=== PATIENT | female | born 1970 | race Caucasian/White ===

== ENCOUNTER → 2021-03-06 14:31 | Outpatient (CLI) | payer OTHER, SELFPAY ==
--- NOTE | ~2021-03-06 | CT_ITS ---
EXAMINATION: CT sinus wo con DATE: 03/06/2021 14:46 INDICATION: Bacterial sinusitis TECHNIQUE: Computed tomography (CT) of the paranasal sinuses was performed without contrast. Iterativ e reconstruction technique was employed. Exam dose: 243.73 mGy-cm total exam DLP. COMPARISON: None FINDINGS: There is mild leftward bowing of the nasal septum. The nasal turbinates are prominent and relatively symmetric in size. Interlamellar cell of both middle nasal turbinates The ostiomeatal units, paranasal sinuses and mastoid air cells are normally developed and aerated david aterally. IMPRESSION: Mild leftward bowing of nasal septum Prominent soft tissue swelling of the nasal turbinates bilaterally Interlamellar cell of both middle nasal turbinates Reviewed, dictated and finalized at [facility]. Reviewed, dictated and finalized at [facility].
== END ==
PROVIDERS: PCP Family Medicine
DX: J32.9 Chronic sinusitis, unspecified (principal); J34.2 Deviated nasal septum
CPT/HCPCS: 70486